=== PATIENT | female | born 1995 | race Caucasian/White ===

== ENCOUNTER 2020-06-14 05:46 | Inpatient (IN) | payer BC ==
[2020-06-14] MEDS ORDERED: Misoprostol 200 MCG Tab PO PRN (05:57)
[2020-06-14] MEDS ORDERED: Sodium Chloride 0.9% 10 ML Syringe FLUSH PRN ×2 (05:57→06:00)
[2020-06-14] MEDS ORDERED: Nalbuphine 10 MG/1 ML Vial IVPUSH PRN (05:57)
[2020-06-14] MEDS ORDERED: Lidocaine 1% 50 ML MDV INJECT PRN (05:57)
[2020-06-14] MEDS ORDERED: Sodium Chloride 0.9% 2.5 ML Syringe FLUSH PRN ×2 (05:57→06:00)
[2020-06-14] MEDS ORDERED: Methylergonovine 0.2 MG/1 ML Amp IM PRN (05:57)
[2020-06-14] MEDS ORDERED: Butorphanol 1 MG/ML SDV IVPUSH PRN (05:57)
[2020-06-14] MEDS ORDERED: Sodium Chloride 0.9% 10 ML SDV IV PRN ×2 (05:57→06:00)
[2020-06-14] MEDS ORDERED: Tranexamic Acid 1,000 MG in Sodium Chloride 0.9% 100 ML IV PRN (05:57)
[2020-06-14] MEDS ORDERED: Carboprost Tromethamine 250 MCG/1 ML Amp IM PRN (05:57)
[2020-06-14] MEDS ORDERED: Water For Irrigation,Sterile 1,000 ML Container IRR PRN (05:57)
[2020-06-14] MEDS ORDERED: Magnesium Sulfate/Water 4 GM in Premix Bag 1 BAG IV ONE (06:00)
[2020-06-14] MEDS ORDERED: Magnesium Sulfate/Water 20 GM/500 ML BAG IV SCH (06:00)
[2020-06-14] MEDS ORDERED: Calcium Gluconate 10% 1 GM/10 ML SDV IV PRN (06:00)
[2020-06-14] MEDS ORDERED: Oxytocin/0.9 % Sodium Chloride 30 UNIT/500 ML BAG IV SCH (06:00)
[2020-06-14] MEDS ORDERED: Lactated Ringers 1,000 ML IV SCH (06:00)
[2020-06-14] MEDS ORDERED: Betamethasone Acetate/Betamethasone Sod Phosphate 30 MG/5 ML MDV IM ONE (06:12)
[2020-06-14] MEDS ORDERED: Ampicillin 2 GM in Sodium Chloride 0.9% 100 ML IV ONE (06:12)
[2020-06-14] MEDS ORDERED: Insulin Regular, Human 100 Units/ML 10 ML Vial SUBCUT ONE (07:00)
[2020-06-14] MEDS ORDERED: Insulin Regular, Human 100 Units/ML 10 ML Vial ONE (07:02)
[2020-06-14 07:10] LABS: HEMOGLOBIN A1C 6.8 % (4.5-6.2)
--- NOTE | 2020-06-14 07:16 | PCM.PREANE ---
Preanesthetic Assessment - Anesthesia/Transfusion/Family Hx Anesthesia History: No Prior Anesthesia Family History of Anesthesia Reaction: No - Physical Assessment NPO Status Date: 06/14/20 NPO Status Time: 00:05 Height: 1.6 m Weight: 117.934 kg ASA Class: 2E - Lab Values: Laboratory Last Values WBC 14.25 K/uL (4.0-11.0) H 06/14/20 06:14 RBC 4.14 M/uL (4.30-5.90) L 06/14/20 06:14 Hgb 12.7 g/dL (12.0-16.0) 06/14/20 06:14 Hct 37.7 % (36.0-46.0) 06/14/20 06:14 MCV 91.1 fL (80.0-98.0) 06/14/20 06:14 MCH 30.7 pg (27.0-32.0) 06/14/20 06:14 MCHC 33.7 g/dL (31.0-37.0) 06/14/20 06:14 RDW Std Deviation 41.0 fl (28.0-62.0) 06/14/20 06:14 RDW Coeff of Winter 12 % (11.0-15.0) 06/14/20 06:14 Plt Count 268 K/uL (150-400) 06/14/20 06:14 MPV 11.10 fL (7.40-12.00) 06/14/20 06:14 Nucleated RBC % 0.0 /100WBC 06/14/20 06:14 Nucleated RBCs # 0 K/uL 06/14/20 06:14 POC Glucose 158 mg/dL (60-110) H 06/14/20 06:44 Hemoglobin A1c 6.8 % (4.5-6.2) H 06/14/20 06:14 COVID-19 (JENNIFFER) NEGATIVE (NEGATIVE) 06/14/20 05:55 - Allergies Allergies/Adverse Reactions: Allergies Allergy/AdvReac Type Severity Reaction Status Date / Time No Known Allergies Allergy Verified 06/11/20 22:04 - Acknowledgements Anesthesia Type Planned: Epidural Pt an Appropriate Candidate for the Planned Anesthesia: Yes Alternatives and Risks of Anesthesia Discussed w Pt/Guardian: Yes Pt/Guardian Understands and Agrees with Anesthesia Plan: Yes PreAnesthesia Questionnaire HEENT History: Reports: None Cardiovascular History: Reports: None Respiratory History: Reports: None Gastrointestinal History: Reports: Cholelithiasis Genitourinary History: Reports: None 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: Musculoskeletal History: Reports: None Neurological History: Reports: None Psychiatric History: Reports: None Endocrine/Metabolic History: Reports: Diabetes, Type II Hematologic History: Reports: None Oncologic (Cancer) History: Reports: None Dermatologic History: Reports: None - Infectious Disease History Infectious Disease History: Reports: Chicken Pox, Herpes - Past Surgical History HEENT Surgical History: Reports: Adenoidectomy, Oral Surgery, Tonsillectomy GI Surgical History: Reports: Cholecystectomy Female Surgical History: Reports: None Musculoskeletal Surgical History: Reports: None - HOME MEDS Home Medications: Home Meds Insulin Aspart [NovoLOG] 15 unit SQ TIDMEALS 05/28/20 [History] Insulin Detemir [Levemir] 50 unit SQ BID 05/28/20 [History] Vits #93/Iron Fum/FA [ Formula Tablet] 1 tab PO DAILY 05/28/20 [History] metFORMIN [Glucophage] 1,000 mg PO BIDMEALS 05/28/20 [History] - CURRENT (IN HOUSE) MEDS Current Meds: Current Medications Butorphanol Tartrate (Stadol) 1 mg IVPUSH Q1H PRN PRN Reason: Pain Calcium Gluconate (Calcium Gluconate) 1 gm IV ASDIRECTED PRN PRN Reason: respiratory distress Carboprost Tromethamine (Hemabate Ds) 250 mcg IM ASDIRECTED PRN PRN Reason: Post Hemorrhage Oxytocin/Sodium Chloride (Oxytocin 30 Unit/500 Ml-Ns) 30 unit in 500 mls @ 500 mls/hr IV TITRATE ABBI Tranexamic Acid 1,000 mg/ (Sodium Chloride) 110 mls @ 660 mls/hr IV ONETIME PRN PRN Reason: Bleeding Lactated Ringer's (Ringers, Lactated) 1,000 mls @ 150 mls/hr IV ASDIRECTED ABBI Magnesium Sulfate (Magnesium Sulfate In Water Premix) 20 gm in 500 mls @ 50 mls/hr IV ASDIRECTED ABBI Last Admin: 06/14/20 06:34 Dose: 2 gm/hr, 50 mls/hr Documented by: Lidocaine HCl (Xylocaine 1%) 50 ml INJECT ONETIME PRN PRN Reason: Laceration repair Methylergonovine Maleate (Methergine) 0.2 mg IM ASDIRECTED PRN PRN Reason: Post Hemorrhage Misoprostol (Cytotec) 200 mcg PO ONETIME PRN PRN Reason: Post Hemorrhage Nalbuphine HCl (Nubain) 10 mg IVPUSH Q1H PRN PRN Reason: Pain (severe 7-10) Sodium Chloride (Saline Flush) 10 ml FLUSH ASDIRECTED PRN PRN Reason: Keep Vein Open Sodium Chloride (Saline Flush) 2.5 ml FLUSH ASDIRECTED PRN PRN Reason: Keep Vein Open Sodium Chloride (Normal Saline) 10 ml IV ASDIRECTED PRN PRN Reason: IV Use Sodium Chloride (Saline Flush) 10 ml FLUSH ASDIRECTED PRN PRN Reason: Keep Vein Open Sodium Chloride (Saline Flush) 2.5 ml FLUSH ASDIRECTED PRN PRN Reason: Keep Vein Open Sodium Chloride (Normal Saline) 10 ml IV ASDIRECTED PRN PRN Reason: IV Use Sterile Water (Sterile Water For Irrigation) 1,000 ml IRR ASDIRECTED PRN PRN Reason: delivery Discontinued Medications Betamethasone Acet/Betameth SodPhos (Celestone Soluspan 6 Mg/Ml) 12 mg IM ONETIME ONE Stop: 06/14/20 06:13 Magnesium Sulfate 4 gm/ Premix 100 mls @ 300 mls/hr IV BOLUS ONE Stop: 06/14/20 06:19 Last Admin: 06/14/20 06:22 Dose: 300 mls/hr Documented by: Ampicillin Sodium 2 gm/ Sodium (Chloride) 100 mls @ 200 mls/hr IV ONETIME ONE Stop: 06/14/20 06:41 Last Admin: 06/14/20 06:35 Dose: 200 mls/hr Documented by: Insulin Human Regular (Novolin R) 2 unit SUBCUT ONETIME ONE; Protocol Stop: 06/14/20 07:01 Insulin Human Regular (Novolin R) Confirm Administered Dose 1,000 unit .ROUTE .STK-MED ONE Stop: 06/14/20 07:03
--- NOTE | 2020-06-14 08:01 | PCM.LDHP ---
L&D History of Present Illness - General Date of Service: 06/14/20 Admit Problem/Dx: Patient Status Order with Admit Dx/Problem 06/14/20 05:57 Patient Status [ADT] Routine Admission Diagnosis/Problem Admission Diagnosis/Problem Source of Information: Patient History Limitations: Reports: No Limitations - History of Present Illness Introduction:: 25 yo at 33/1 weeks followed by CNM at [facility] and Dr Hess saw the patient at 20 weeks by records presents with intense contractions since 4 am. She is unsure when she started leaking fluids, but believes it was before this. She has bloody show. She is very uncomfortable and breating through contractions complicated by uncontrolled diabetes, HgbA1c 11.9 upon presentation--has been followed monthly at OB clinic and with simulation educator. She has been on novolog NPH bid 50 U and regular 15-20 U qac. And metformin 1000 mg bid. - Related Data Allergies/Adverse Reactions: Allergies Allergy/AdvReac Type Severity Reaction Status Date / Time No Known Allergies Allergy Verified 06/11/20 22:04 Home Medications: Home Meds Insulin Aspart [NovoLOG] 15 unit SQ TIDMEALS 05/28/20 [History] Insulin Detemir [Levemir] 50 unit SQ BID 05/28/20 [History] Vits #93/Iron Fum/FA [ Formula Tablet] 1 tab PO DAILY 05/28/20 [History] metFORMIN [Glucophage] 1,000 mg PO BIDMEALS 05/28/20 [History] Past Medical History HEENT History: Reports: None Cardiovascular History: Reports: None Respiratory History: Reports: None Gastrointestinal History: Reports: Cholelithiasis Genitourinary History: Reports: None 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: Musculoskeletal History: Reports: None Neurological History: Reports: None Psychiatric History: Reports: None Endocrine/Metabolic History: Reports: Diabetes, Type II (Insulin depedendent) Hematologic History: Reports: None Oncologic (Cancer) History: Reports: None Dermatologic History: Reports: None - Infectious Disease History Infectious Disease History: Reports: Chicken Pox, Herpes - Past Surgical History HEENT Surgical History: Reports: Adenoidectomy, Oral Surgery, Tonsillectomy GI Surgical History: Reports: Cholecystectomy Female Surgical History: Reports: None Musculoskeletal Surgical History: Reports: None Social & Family History - Family History Cardiac: Reports: Congenital Septal Defect, High Cholesterol, Hypertension, [place] Respiratory: Reports: None GI: Reports: None : Reports: None OBGYN: Reports: Neurological: Reports: None Psychiatric: Reports: None Endocrine/Metabolic: Reports: Diabetes, type II Hematologic: Reports: None Dermatologic: Reports: None Oncologic: Reports: Skin H&P Review of Systems - Review of Systems: Review Of Systems: See Below General: Reports: No Symptoms HEENT: Reports: No Symptoms Pulmonary: Reports: No Symptoms Cardiovascular: Reports: No Symptoms Gastrointestinal: Reports: Abdominal Pain (contractions) Genitourinary: Reports: No Symptoms Musculoskeletal: Reports: No Symptoms Skin: Reports: No Symptoms Psychiatric: Reports: No Symptoms Neurological: Reports: No Symptoms Hematologic/Lymphatic: Reports: No Symptoms Immunologic: Reports: No Symptoms L&D Exam - Exam Exam: See Below - Vital Signs Weight: 117.934 kg - OB Specific Contraction Intensity: Strong Movement: Active Heart Tones: Present Heart Tones per Min: 150 Heart Rate (FHR) Variability: Moderate (6-25 bmp) Presentation: Right Occiput Anterior (NADIA) - Freeman Score Freeman Score Cervix Position: Anterior Freeman Score Consistency: Soft Freeman Score Effacement: >80% Freeman Score Dilation: > 5 cm - Exam General: Alert, Mild Distress Neck: Supple Lungs: Clear to Auscultation, Normal Respiratory Effort Cardiovascular: Regular Rate, Regular Rhythm GI/Abdominal Exam: Soft. No: Guarding, Rebound Genitourinary: Cervical dilitation, Cervical fluid Back Exam: Normal Inspection Extremities: Pedal Edema (1+). No: Lindy's Sign Skin: Warm, Dry, Intact Neurological: Reflexes Equal Bilateral Psychiatric: Alert, Anxious - Patient Data Lab Results Last 24 hrs: Laboratory Results - last 24 hr 06/14/20 06/14/20 06/14/20 Range/Units 05:55 06:14 06:14 WBC 14.25 H (4.0-11.0) K/uL RBC 4.14 L (4.30-5.90) M/uL Hgb 12.7 (12.0-16.0) g/dL Hct 37.7 (36.0-46.0) % MCV 91.1 (80.0-98.0) fL MCH 30.7 (27.0-32.0) pg MCHC 33.7 (31.0-37.0) g/dL RDW Std Deviation 41.0 (28.0-62.0) fl RDW Coeff of Winter 12 (11.0-15.0) % Plt Count 268 (150-400) K/uL MPV 11.10 (7.40-12.00) fL Nucleated RBC % 0.0 /100WBC Nucleated RBCs # 0 K/uL POC Glucose (60-110) mg/dL Hemoglobin A1c (4.5-6.2) % COVID-19 (JENNIFFER) NEGATIVE (NEGATIVE) Blood Type A POSITIVE Antibody Screen NEGATIVE 06/14/20 06/14/20 Range/Units 06:14 06:44 WBC (4.0-11.0) K/uL RBC (4.30-5.90) M/uL Hgb (12.0-16.0) g/dL Hct (36.0-46.0) % MCV (80.0-98.0) fL MCH (27.0-32.0) pg MCHC (31.0-37.0) g/dL RDW Std Deviation (28.0-62.0) fl RDW Coeff of Winter (11.0-15.0) % Plt Count (150-400) K/uL MPV (7.40-12.00) fL Nucleated RBC % /100WBC Nucleated RBCs # K/uL POC Glucose 158 H (60-110) mg/dL Hemoglobin A1c 6.8 H (4.5-6.2) % COVID-19 (JENNIFFER) (NEGATIVE) Blood Type Antibody Screen Result Diagrams: 06/14/20 06:14 - Problem List (1) labor in third trimester SNOMED Code(s): 4027678 ICD Code: O60.03 - LABOR WITHOUT DELIVERY, THIRD TRIMESTER Status: Acute Current Visit: Yes Problem List Initiated/Reviewed/Updated: Yes Orders Last 24hrs: Active Orders 24 hr Category Date Time Status Patient Status [ADT] Routine ADT 06/14/20 05:57 Active Bedrest [RC] ASDIRECTED Care 06/14/20 06:00 Active Communication Order [RC] PRN Care 06/14/20 06:00 Active Communication Order [RC] PRN Care 06/14/20 06:00 Active Equipment to Bedside [RC] PRN Care 06/14/20 06:00 Active Heart Tones [RC] ASDIRECTED Care 06/14/20 06:00 Active Heart Tones [RC] CONTINUOUS Care 06/14/20 05:57 Active Non Stress Test [RC] PER UNIT ROUTINE Care 06/14/20 05:57 Active Height and Weight [RC] DAILY Care 06/14/20 06:00 Active Intake and Output [RC] QSHIFT Care 06/14/20 06:00 Active May Shower [RC] ASDIRECTED Care 06/14/20 05:57 Active Notify Provider Status Change [RC] ASDIRECTED Care 06/14/20 06:02 Active Notify Provider [RC] PRN Care 06/14/20 05:57 Active Notify Provider [RC] PRN Care 06/14/20 06:00 Active Oxygen Therapy [RC] PRN Care 06/14/20 06:00 Active Up ad Fang [RC] ASDIRECTED Care 06/14/20 05:57 Active Vaginal Exam [RC] PRN Care 06/14/20 05:57 Active Vital Signs [RC] ASDIRECTED Care 06/14/20 06:00 Active Vital Signs [RC] PER UNIT ROUTINE Care 06/14/20 05:57 Active GBS [CULTURE GROUP B STREP] [RM] Routine Lab 06/14/20 06:24 Received MAGNESIUM [CHEM] Q6H Lab 06/14/20 10:00 Ordered MAGNESIUM [CHEM] Q6H Lab 06/14/20 16:00 Ordered MAGNESIUM [CHEM] Q6H Lab 06/14/20 22:00 Ordered MAGNESIUM [CHEM] Q6H Lab 06/15/20 04:00 Ordered RPR (SYPHILIS SERO) W/ RFLX [REF] Routine Lab 06/14/20 06:14 Received Butorphanol [Stadol] Med 06/14/20 05:57 Active 1 mg IVPUSH Q1H PRN Calcium Gluconate Med 06/14/20 06:00 Active 1 gm IV ASDIRECTED PRN Carboprost Tromethamine [Hemabate DS] Med 06/14/20 05:57 Active 250 mcg IM ASDIRECTED PRN Lactated Ringers [Ringers, Lactated] 1,000 ml Med 06/14/20 06:00 Active IV ASDIRECTED Lidocaine 1% [Xylocaine 1%] Med 06/14/20 05:57 Active 50 ml INJECT ONETIME PRN Magnesium Sulfate/Water [Magnesium Sulfate in Water [facility] 06/14/20 06:00 Active Premix] 20 gm in 500 ml IV ASDIRECTED Methylergonovine [Methergine] [facility] 06/14/20 05:57 Active 0.2 mg IM ASDIRECTED PRN Nalbuphine [Nubain] Med 06/14/20 05:57 Active 10 mg IVPUSH Q1H PRN Oxytocin/0.9 % Sodium Chloride [Oxytocin 30 Unit/500 ML Med 06/14/20 06:00 Active -NS] 30 unit in 500 ml IV TITRATE Sodium Chloride 0.9% [Normal Saline] [facility] 06/14/20 05:57 Active 10 ml IV ASDIRECTED PRN Sodium Chloride 0.9% [Normal Saline] [facility] 06/14/20 06:00 Active 10 ml IV ASDIRECTED PRN Sodium Chloride 0.9% [Saline Flush] [facility] 06/14/20 05:57 Active 10 ml FLUSH ASDIRECTED PRN Sodium Chloride 0.9% [Saline Flush] [facility] 06/14/20 06:00 Active 10 ml FLUSH ASDIRECTED PRN Sodium Chloride 0.9% [Saline Flush] [facility] 06/14/20 05:57 Active 2.5 ml FLUSH ASDIRECTED PRN Sodium Chloride 0.9% [Saline Flush] [facility] 06/14/20 06:00 Active 2.5 ml FLUSH ASDIRECTED PRN Tranexamic Acid [Cyklokapron] 1,000 mg [facility] 06/14/20 05:57 Active Sodium Chloride 0.9% [Normal Saline] 100 ml IV ONETIME Water For Irrigation,Sterile [Sterile Water for Med 06/14/20 05:57 Active Irrigation] 1,000 ml IRR ASDIRECTED PRN miSOPROStoL [Cytotec] [facility] 06/14/20 05:57 Active 200 mcg PO ONETIME PRN Deep Tendon Reflexes [WOMSER] Q1H Ot 06/14/20 06:00 Ordered Deep Tendon Reflexes [WOMSER] Q1H Oth 06/14/20 07:00 Ordered Deep Tendon Reflexes [WOMSER] Q1H Ot 06/14/20 08:00 Ordered Deep Tendon Reflexes [WOMSER] Q1H Ot 06/14/20 09:00 Ordered Deep Tendon Reflexes [WOMSER] Q1 Ot 06/14/20 10:00 Ordered Deep Tendon Reflexes [WOMSER] Q1 Ot 06/14/20 11:00 Ordered Deep Tendon Reflexes [WOMSER] [facility] 06/14/20 12:00 Ordered Deep Tendon Reflexes [WOMSER] Q1[facility] 06/14/20 13:00 Ordered Deep Tendon Reflexes [WOMSER] Q1[facility] 06/14/20 14:00 Ordered Deep Tendon Reflexes [WOMSER] Q1[facility] 06/14/20 15:00 Ordered Deep Tendon Reflexes [WOMSER] Q1[facility] 06/14/20 16:00 Ordered Deep Tendon Reflexes [WOMSER] [address] 06/14/20 17:00 Ordered Deep Tendon Reflexes [WOMSER] [address] 06/14/20 18:00 Ordered Deep Tendon Reflexes [WOMSER] [address] 06/14/20 19:00 Ordered Deep Tendon Reflexes [WOMSER] [address] 06/14/20 20:00 Ordered Deep Tendon Reflexes [WOMSER] [address] 06/14/20 21:00 Ordered Deep Tendon Reflexes [WOMSER] Q1[facility] 06/14/20 22:00 Ordered Deep Tendon Reflexes [WOMSER] [address] 06/14/20 23:00 Ordered Deep Tendon Reflexes [WOMSER] [address] 06/15/20 00:00 Ordered Deep Tendon Reflexes [WOMSER] [address] 06/15/20 01:00 Ordered Deep Tendon Reflexes [WOMSER] [address] 06/15/20 02:00 Ordered Deep Tendon Reflexes [WOMSER] [address] 06/15/20 03:00 Ordered Deep Tendon Reflexes [WOMSER] [address] 06/15/20 04:00 Ordered Deep Tendon Reflexes [WOMSER] [address] 06/15/20 05:00 Ordered Deep Tendon Reflexes [WOMSER] [address] 06/15/20 06:00 Ordered Electronic Heart Tones Ext w TOCO [WOMSER] Per Oth 06/14/20 06:00 Ordered Unit Routine Scalp Electrode [WOMSER] Per Unit Routine Oth 06/14/20 05:57 Ordered Peripheral IV Insertion Adult [OM.PC] Routine Oth 06/14/20 05:57 Ordered Peripheral IV Insertion Adult [OM.PC] Routine Oth 06/14/20 06:00 Ordered Resuscitation Status Routine Resus Stat 06/14/20 05:57 Ordered Medication Orders Butorphanol Tartrate (Stadol) 1 mg IVPUSH Q1H PRN PRN Reason: Pain Calcium Gluconate (Calcium Gluconate) 1 gm IV ASDIRECTED PRN PRN Reason: respiratory distress Carboprost Tromethamine (Hemabate Ds) 250 mcg IM ASDIRECTED PRN PRN Reason: Post Hemorrhage Oxytocin/Sodium Chloride (Oxytocin 30 Unit/500 Ml-Ns) 30 unit in 500 mls @ 500 mls/hr IV TITRATE [facility] Last Admin: 06/14/20 07:25 Dose: 500 mls/hr Documented by: MOY Tranexamic Acid 1,000 mg/ (Sodium Chloride) 110 mls @ 660 mls/hr IV ONETIME PRN PRN Reason: Bleeding Lactated Ringer's (Ringers, Lactated) 1,000 mls @ 150 mls/hr IV ASDIRECTED ABBI Magnesium Sulfate (Magnesium Sulfate In Water Premix) 20 gm in 500 mls @ 50 mls/hr IV ASDIRECTED ABBI Last Admin: 06/14/20 06:34 Dose: 2 gm/hr, 50 mls/hr Documented by: MOY Lidocaine HCl (Xylocaine 1%) 50 ml INJECT ONETIME PRN PRN Reason: Laceration repair Methylergonovine Maleate (Methergine) 0.2 mg IM ASDIRECTED PRN PRN Reason: Post Hemorrhage Misoprostol (Cytotec) 200 mcg PO ONETIME PRN PRN Reason: Post Hemorrhage Nalbuphine HCl (Nubain) 10 mg IVPUSH Q1H PRN PRN Reason: Pain (severe 7-10) Sodium Chloride (Saline Flush) 10 ml FLUSH ASDIRECTED PRN PRN Reason: Keep Vein Open Sodium Chloride (Saline Flush) 2.5 ml FLUSH ASDIRECTED PRN PRN Reason: Keep Vein Open Sodium Chloride (Normal Saline) 10 ml IV ASDIRECTED PRN PRN Reason: IV Use Sodium Chloride (Saline Flush) 10 ml FLUSH ASDIRECTED PRN PRN Reason: Keep Vein Open Sodium Chloride (Saline Flush) 2.5 ml FLUSH ASDIRECTED PRN PRN Reason: Keep Vein Open Sodium Chloride (Normal Saline) 10 ml IV ASDIRECTED PRN PRN Reason: IV Use Sterile Water (Sterile Water For Irrigation) 1,000 ml IRR ASDIRECTED PRN PRN Reason: delivery Assessment/Plan Comment:: 33/1 week IUP Active labor/ ROM GBBS unknown Type II DM, insulin dependent Patient initially presented and found to be 7 cm. She was admitted, routine labs with COVID (negative) and HgbA1c performed (6.8). GBBS collected, ampicillin prophylaxis initiated. Pediatric team called. Single dose of betamethasone for lung maturity given. Initiated magnesium tocolysis and for neurologic protection. However, patient has quickly progressed to complete. [facility] has agreed to accept transfer of . Mother received 2U R for glucose of 159. Expectant vaginal delivery of infant. Explained circumstances to patient and partner. They agree to plan of care.
[2020-06-14] MEDS ORDERED: Ibuprofen 400 MG Tab PO PRN (08:08)
[2020-06-14] MEDS ORDERED: oxyCODONE 5 MG Tab PO PRN (08:08)
[2020-06-14] MEDS ORDERED: Bisacodyl 10 MG Supp RECTAL PRN (08:08)
[2020-06-14] MEDS ORDERED: Ibuprofen 800 MG Tab PO PRN (08:08)
[2020-06-14] MEDS ORDERED: Docusate Sodium 100 MG Cap PO PRN (08:08)
[2020-06-14] MEDS ORDERED: Witch Hazel Medicated Pads 40/Jar TOP PRN (08:08)
[2020-06-14] MEDS ORDERED: Acetaminophen 500 MG Tab PO PRN ×2 (08:08)
[2020-06-14] MEDS ORDERED: Benzocaine/Menthol 20%-0.5% Spray 78 GM Cannister TOP PRN (08:08)
[2020-06-14] MEDS ORDERED: Lanolin 100% Cream 7 GM Tube TOP PRN (08:08)
--- NOTE | 2020-06-14 08:21 | PCM.OPNOTE ---
- General Post-Op/Procedure Note Date of Surgery/Procedure: 06/14/20 Operative Procedure(s): /1st vaginal laceration--repaired Findings: Viable female APGARs 8, 9 weight 2000 g. Spontaneous delivery intact placenta with 3V cord--cord is quite short, to pathology Pre Op Diagnosis: 33/1 week IUP. labor with ROM. Type II DM Post-Op Diagnosis: Same Anesthesia Technique: Local Primary Surgeon: Cee Sidhu EBL in mLs: 200 Complications: none known Condition: Stable Free Text/Narrative:: Dictation [id number]
--- NOTE | 2020-06-14 09:41 | OR ---
SURGEON: Cee Sidhu M.D. DATE OF PROCEDURE: 06/14/2020 PREOPERATIVE DIAGNOSES: 1. A 33 and 1 week intrauterine . 2. labor with rupture of membranes. 3. Pre-existing type 2 diabetes. POSTOPERATIVE DIAGNOSES: 1. A 33 and 1 week intrauterine . 2. labor with rupture of membranes. 3. Pre-existing type 2 diabetes. PROCEDURE: Spontaneous vaginal delivery with first-degree right vaginal laceration repaired ANESTHESIA: Local. ESTIMATED BLOOD LOSS: 200 mL. COMPLICATIONS: None known. FINDINGS: viable female, score 8 at 1 minute, 9 at 5 minutes. Weight 2000 g. Spontaneous delivery, intact placenta, 3-vessel cord. Cord was quite short. Placenta to pathology. DISPOSITION: to nursery, awaiting NICU team. Mom in LDRP. PROCEDURE DETAILS: Haily is a 25-year-old G1, P0 at 33 and 1 week's gestational age who presented acutely on the morning of 06/14/2020 with intense contractions since 4 a.m. She is not sure what time she began leaking fluid, but she believes it was sometime before that in the night. Upon initial presentation, the patient was 6 to 7 cm. Therefore, she was admitted. Routine labs were drawn as well as COVID, which was negative, and hemoglobin A1c which was 6.8. In addition glucose is 159. The patient is group B beta strep unknown, therefore, this was obtained and initiated on ampicillin prophylaxis. She did receive a dose of betamethasone for lung maturity and initiated magnesium tocolysis in attempts to slow the contractions and perhaps convey some neurologic protection given this is a level 1 nursery and anticipate transfer to NICU nursery. The patient quickly progressed to complete, 100% effaced at +2 station, very much feeling the urge to push. The pediatric team was assembled. The NICU from [facility] in [place] has been contacted and a team will be coming this way for . However, the patient is not going to be able to resist pushing efforts. heart tones are in the 150s with variability. The patient was then placed in modified dorsal position and began bearing down with contractions involuntarily. At this point, she began pushing efforts, pushed readily to a +4 station, delivered 's head atraumatically spontaneously, followed by anterior shoulder, posterior shoulder, and remaining of the body. The 's oropharynx and nares were bulb suctioned. Cord was found to be quite short. This was clamped x2 and cut. was handed off to attending beaming inspector. Cord arterial, cord venous, cord blood sampling was obtained. Light pressure was applied while the placenta was delivered spontaneously intact. Vigorous fundal uterine massage was then applied while 30 units of Pitocin was delivered in 500 mL of fluid. Upon inspection of the cervix, vaginal sidewalls, and perineum, there was a first-degree right vaginal laceration noted. This was repaired using 3-0 Vicryl in continuous running fashion after prepping the region with approximately 6 mL of 1% lidocaine. The patient has tolerated the procedure well. Hemostasis evident. Uterus remained firm. Sponge, instrument, and needle count was correct. The patient will remain in LDRP. Infant to nursery awaiting NICU team. ALDA / DAISY /[id number] SAMM
--- NOTE | 2020-06-14 10:28 | PCM.DCSUM1 ---
Discharge Summary - Hospital Course Free Text/Narrative:: Discharge home. Follow up in the clinic in six weeks for routine visit. Diagnosis: Stroke: No Modified Greenfield Scale: No Symptoms at All Modified Laci Scale Score: 0 - Discharge Data Discharge Date: 06/14/20 Discharge Disposition: Home, Self-Care 01 Condition: Stable - Referral to Home Health Primary Care Physician: PCP None - Patient Summary/Data Operative Procedure(s) Performed: /1st vaginal laceration--repaired - Patient Instructions Diet: Drink 8-10+ Glasses/Day, Diabetic Diet Activity: No Strenuous Activities, Rest and Relax Today Showering/Bathing: May Shower Notify Provider of: Fever, Increased Pain, Nausea and/or Vomiting Other/Special Instructions: Pelvic rest for 6 weeks. Continue PNV daily - Discharge Plan *PRESCRIPTION DRUG MONITORING PROGRAM REVIEWED*: Not Applicable *COPY OF PRESCRIPTION DRUG MONITORING REPORT IN PATIENT ARELIS: Not Applicable Prescriptions/Med Rec: Ibuprofen [Motrin] 800 mg PO Q6H PRN #90 tablet PRN Reason: Pain Home Medications: Home Meds Insulin Aspart [NovoLOG] 15 unit SQ TIDMEALS 05/28/20 [History] Insulin Detemir [Levemir] 50 unit SQ BID 05/28/20 [History] Vits #93/Iron Fum/FA [ Formula Tablet] 1 tab PO DAILY 05/28/20 [History] metFORMIN [Glucophage] 1,000 mg PO BIDMEALS 05/28/20 [History] Ibuprofen [Motrin] 800 mg PO Q6H PRN #90 tablet 06/14/20 [Rx] Oxygen Therapy Mode: Room Air - Discharge Summary/Plan Comment DC Time >30 min.: Yes - General Info Date of Service: 06/14/20 Admission Dx/Problem (Free Text: Patient Status Order with Admit Dx/Problem 06/14/20 05:57 Patient Status [ADT] Routine Admission Diagnosis/Problem Admission Diagnosis/Problem Functional Status: Reports: Pain Controlled, Tolerating Diet, Ambulating, U rinating - Review of Systems General: Reports: No Symptoms HEENT: Reports: No Symptoms Pulmonary: Reports: No Symptoms Cardiovascular: Reports: No Symptoms Gastrointestinal: Reports: No Symptoms Genitourinary: Reports: No Symptoms Musculoskeletal: Reports: No Symptoms Skin: Reports: No Symptoms Neurological: Reports: No Symptoms Psychiatric: Reports: No Symptoms - Patient Data Weight - Most Recent: 260 lb Lab Results - Last 24 hrs: Laboratory Results - last 24 hr 06/14/20 06/14/20 06/14/20 Range/Units 05:55 06:14 06:14 WBC 14.25 H (4.0-11.0) K/uL RBC 4.14 L (4.30-5.90) M/uL Hgb 12.7 (12.0-16.0) g/dL Hct 37.7 (36.0-46.0) % MCV 91.1 (80.0-98.0) fL MCH 30.7 (27.0-32.0) pg MCHC 33.7 (31.0-37.0) g/dL RDW Std Deviation 41.0 (28.0-62.0) fl RDW Coeff of Winter 12 (11.0-15.0) % Plt Count 268 (150-400) K/uL MPV 11.10 (7.40-12.00) fL Nucleated RBC % 0.0 /100WBC Nucleated RBCs # 0 K/uL Cord ABG pH (7.18-7.38) Cord ABG Base Excess (-10--2) Cord VBG pH (7.25-7.45) Cord VBG Base Excess (-10--2) POC Glucose (60-110) mg/dL Hemoglobin A1c (4.5-6.2) % COVID-19 (JENNIFFER) NEGATIVE (NEGATIVE) Blood Type A POSITIVE Antibody Screen NEGATIVE 06/14/20 06/14/20 06/14/20 Range/Units 06:14 06:44 07:24 WBC (4.0-11.0) K/uL RBC (4.30-5.90) M/uL Hgb (12.0-16.0) g/dL Hct (36.0-46.0) % MCV (80.0-98.0) fL MCH (27.0-32.0) pg MCHC (31.0-37.0) g/dL RDW Std Deviation (28.0-62.0) fl RDW Coeff of Winter (11.0-15.0) % Plt Count (150-400) K/uL MPV (7.40-12.00) fL Nucleated RBC % /100WBC Nucleated RBCs # K/uL Cord ABG pH 7.248 (7.18-7.38) Cord ABG Base Excess -7 (-10--2) Cord VBG pH 7.323 (7.25-7.45) Cord VBG Base Excess -8 (-10--2) POC Glucose 158 H (60-110) mg/dL Hemoglobin A1c 6.8 H (4.5-6.2) % COVID-19 (JENNIFFER) (NEGATIVE) Blood Type Antibody Screen Med Orders - Current: Current Medications Acetaminophen (Tylenol Extra Strength) 500 mg PO Q4H PRN PRN Reason: Pain Acetaminophen (Tylenol Extra Strength) 1,000 mg PO Q4H PRN PRN Reason: Pain Benzocaine/Menthol (Dermoplast Pain Relief 20%-0.5% [place]eland) 78 gm TOP ASDIRECTED PRN PRN Reason: Perineal Comfort Measure Last Admin: 06/14/20 09:01 Dose: 1 can Documented by: Bisacodyl (Dulcolax) 10 mg RECTAL ONETIME PRN PRN Reason: Constipation Butorphanol Tartrate (Stadol) 1 mg IVPUSH Q1H PRN PRN Reason: Pain Calcium Gluconate (Calcium Gluconate) 1 gm IV ASDIRECTED PRN PRN Reason: respiratory distress Carboprost Tromethamine (Hemabate Ds) 250 mcg IM ASDIRECTED PRN PRN Reason: Post Hemorrhage Docusate Sodium (Colace) 100 mg PO BID PRN PRN Reason: Constipation Emollient Ointment (Lansinoh Hpa) 0 gm TOP ASDIRECTED PRN PRN Reason: Sore Nipples Oxytocin/Sodium Chloride (Oxytocin 30 Unit/500 Ml-Ns) 30 unit in 500 mls @ 500 mls/hr IV TITRATE [facility] Last Admin: 06/14/20 07:25 Dose: 500 mls/hr Documented by: Tranexamic Acid 1,000 mg/ (Sodium Chloride) 110 mls @ 660 mls/hr IV ONETIME PRN PRN Reason: Bleeding Lactated Ringer's (Ringers, Lactated) 1,000 mls @ 150 mls/hr IV ASDIRECTED [facility] Last Admin: 06/14/20 06:15 Dose: 999 mls/hr Documented by: Magnesium Sulfate (Magnesium Sulfate In Water Premix) 20 gm in 500 mls @ 50 mls/hr IV ASDIRECTED ABBI Last Admin: 06/14/20 06:34 Dose: 2 gm/hr, 50 mls/hr Documented by: Ibuprofen (Motrin) 400 mg PO Q4H PRN PRN Reason: Pain Ibuprofen (Motrin) 800 mg PO Q6H PRN PRN Reason: Pain Insulin Human Regular (Novolin R) 0 unit SUBCUT QIDACANDBED [facility]; Protocol Lidocaine HCl (Xylocaine 1%) 50 ml INJECT ONETIME PRN PRN Reason: Laceration repair Methylergonovine Maleate (Methergine) 0.2 mg IM ASDIRECTED PRN PRN Reason: Post Hemorrhage Misoprostol (Cytotec) 200 mcg PO ONETIME PRN PRN Reason: Post Hemorrhage Nalbuphine HCl (Nubain) 10 mg IVPUSH Q1H PRN PRN Reason: Pain (severe 7-10) Oxycodone HCl (Oxycodone) 5 mg PO Q2H PRN PRN Reason: Pain Sodium Chloride (Saline Flush) 10 ml FLUSH ASDIRECTED PRN PRN Reason: Keep Vein Open Sodium Chloride (Saline Flush) 2.5 ml FLUSH ASDIRECTED PRN PRN Reason: Keep Vein Open Sodium Chloride (Normal Saline) 10 ml IV ASDIRECTED PRN PRN Reason: IV Use Sodium Chloride (Saline Flush) 10 ml FLUSH ASDIRECTED PRN PRN Reason: Keep Vein Open Sodium Chloride (Saline Flush) 2.5 ml FLUSH ASDIRECTED PRN PRN Reason: Keep Vein Open Sodium Chloride (Normal Saline) 10 ml IV ASDIRECTED PRN PRN Reason: IV Use Sterile Water (Sterile Water For Irrigation) 1,000 ml IRR ASDIRECTED PRN PRN Reason: delivery Tutu Leong (Tucks) 1 pad TOP ASDIRECTED PRN PRN Reason: comfort care Last Admin: 06/14/20 09:01 Dose: 1 tub Documented by: Discontinued Medications Betamethasone Acet/Betameth SodPhos (Celestone Soluspan 6 Mg/Ml) 12 mg IM ONETIME ONE Stop: 06/14/20 06:13 Last Admin: 06/14/20 06:34 Dose: 12 mg Documented by: Magnesium Sulfate 4 gm/ Premix 100 mls @ 300 mls/hr IV BOLUS ONE Stop: 06/14/20 06:19 Last Admin: 06/14/20 06:22 Dose: 300 mls/hr Documented by: Ampicillin Sodium 2 gm/ Sodium (Chloride) 100 mls @ 200 mls/hr IV ONETIME ONE Stop: 06/14/20 06:41 Last Admin: 06/14/20 06:35 Dose: 200 mls/hr Documented by: Insulin Human Regular (Novolin R) 2 unit SUBCUT ONETIME ONE; Protocol Stop: 06/14/20 07:01 Last Admin: 06/14/20 07:05 Dose: 2 units Documented by: Insulin Human Regular (Novolin R) Confirm Administered Dose 1,000 unit .ROUTE .STK-MED ONE Stop: 06/14/20 07:03 - Exam General: Reports: Alert, Oriented, Cooperative, No Acute Distress Lungs: Reports: Normal Respiratory Effort Cardiovascular: Reports: Regular Rate, Regular Rhythm GI/Abdominal Exam: Soft, Non-Tender (Female) Exam: Deferred Rectal (Female) Exam: Deferred Back Exam: Reports: Normal Inspection, Full Range of Motion Extremities: Normal Inspection, Normal Range of Motion, Non-Tender, Normal Capillary Refill Skin: Reports: Warm, Dry, Intact Wound/Incisions: Reports: Healing Well Neurological: Reports: No New Focal Deficit, Normal Gait, Normal Speech, Normal Tone, Sensation Intact Psy/Mental Status: Reports: Alert, Normal Affect, Normal Mood
[2020-06-14] MEDS ORDERED: Insulin Regular, Human 100 Units/ML 10 ML Vial SUBCUT SCH (11:30)
== END 2020-06-14 16:35 | disposition home or self-care (01) | DRG 560 ==
LOC: MW.OBCHECK 05:46 → MW.OB 05:46 → MW.OBCHECK 05:57 → MW.OB 05:57 → OBSVTOIN 07:24
PROVIDERS: ADMIT Obstetrics & Gynecology; ATTEND Obstetrics & Gynecology
PROC: 10E0XZZ Delivery of Products of Conception, External Approach (ICD-10-PCS; principal; 2020-06-14)
PROC: 0HQ9XZZ Repair Perineum Skin, External Approach (ICD-10-PCS; 2020-06-14)
PROC: 3E0R3BZ Introduction of Anesthetic Agent into Spinal Canal, Percutaneous Approach (ICD-10-PCS; 2020-06-14)
DX: O60.14X0 Preterm labor third trimester with preterm delivery third trimester, not applicable or unspecified (principal); O24.12 Pre-existing type 2 diabetes mellitus, in childbirth; Z3A.33 33 weeks gestation of pregnancy; Z37.0 Single live birth; E11.9 Type 2 diabetes mellitus without complications; Z79.4 Long term (current) use of insulin; Z11.59 Encounter for screening for other viral diseases; O70.0 First degree perineal laceration during delivery
CPT/HCPCS: 59025; 59409; 82803; 82962; 83036; 83735; 85027; 86592; 86850; 86900; 86901; 87081; A9270-GY; J0290; J0702; J1815-GY; J2590; J3475; J7050; J7120; U0002